=== PATIENT | male | born 1965 | race Caucasian/White ===

== ENCOUNTER 2020-01-05 05:47 | Emergency (ER) | payer OTHER ==
[~2020-01-05] VITALS: Ht 170.2 cm; Wt 64.0 kg
[2020-01-05 06:28] LABS: BASOPHILS % 0.9 % (0.0-2.0); EOSINOPHILS % 1.1 % (0.0-5.0); HEMATOCRIT. 36.1 % (42.0-52.0); HEMOGLOBIN. 12.2 g/dL (14.0-18.0); LYMPHOCYTES % 15.7 % (20.0-50.0); MEAN CORPUSCULAR VOLUME 83.1 fL (80.0-94.0); MEAN PLATELET VOLUME 9.2 fl (7.4-10.4); MONOCYTES % 5.9 % (2.0-8.0); NEUTROPHILS % 76.4 % (40.0-76.0); PLATELET 186 x1000/uL (130-400); RED BLOOD CELL COUNT 4.34 mill/uL (4.7-6.1); RED CELL DISTRIBUTION WIDTH 15.1 % (11.6-14.6)
[2020-01-05 06:35] LABS: PROTHROMBIN TIME 10.7 sec (9.6-11.0)
[2020-01-05 06:38] LABS: CHLORIDE 103 mEq/L (98-107)
[2020-01-05 06:42] LABS: ETHANOL BLOOD < 10 mg/dL
[2020-01-05 06:46] LABS: CREATINE KINASE 122 IU/L (39-308)
[2020-01-05] MEDS ORDERED: POTASSIUM CHLORIDE INJ 40 MEQ in DEXT 5% WATER 250 ML IV ONE (07:00)
[2020-01-05] MEDS ORDERED: SODIUM CHLORIDE 0.9% 1,000 ML IV ONE (07:00)
[2020-01-05] MEDS: POTASSIUM CHLORIDE 20MEQ TABLET SR PO SCH ×2 (07:18→09:00)
[2020-01-05] MEDS ORDERED: INSULIN REGULAR (HUMULIN R) 300UNITS/3ML SUBCUT ONE (14:15)
[2020-01-05 14:34] VITALS: BP 166/67
== END 2020-01-05 14:44 | disposition short-term general hospital (02) ==
LOC: EDBD 05:47 → ER 05:47
DX: G93.40 Encephalopathy, unspecified (principal); N28.9 Disorder of kidney and ureter, unspecified; E87.6 Hypokalemia; E11.65 Type 2 diabetes mellitus with hyperglycemia; I50.9 Heart failure, unspecified; F03.90 Unspecified dementia, unspecified severity, without behavioral disturbance, psychotic disturbance, mood disturbance, and anxiety; Z79.4 Long term (current) use of insulin
CPT/HCPCS: 36415; 70450; 71045; 80053; 80320; 82140; 82550; 82962; 84484; 85025; 85610; 93005; 96361; 96365; 96366; 96372; 99285; J1815; J3480; J7030; J7060; G0480